=== PATIENT | male | born 1990 | race Caucasian/White ===

== ENCOUNTER 2020-10-04 08:38 | Emergency (ER) | payer SELFPAY ==
[2020-10-04 08:44] VITALS: BP 124/82; PULSE 60; RESP 15; TEMP 36.3; O2SAT 96; BMI 28.2
[2020-10-04] MEDS: TET,DIPH,PERTUSS(ACELL),VAC/PF 0.5 ML SYRINGE IM (11:13)
--- NOTE | 2020-10-04 11:21 | ED_ITS ---
HPI - Wound/Laceration General Chief Complaint: Wound/Laceration Stated Complaint: Cut right hand badly Time Seen by Provider: 10/04/20 08:45 Source: patient Mode of arrival: Ambulatory Limitations: no limitations History of Present Illness HPI narrative: 29-year-old male daily smoker presents with a laceration to his right lateral hand suffered this morning when he accidentally broke a glass. He denies any numbness or tingling. His tetanus will need to be updated. He does have a moderate amount of bleeding which is controlled with pressure. Related Data Allergies Allergy/AdvReac Type Severity Reaction Status Date / Time No Known Drug Allergies Allergy Verified 10/04/20 08:46 Review of Systems Review of Systems Narrative: GENERAL: Denies chills, fatigue, malaise, fever, sweats. HEENT: Denies sinus pain, ear pain, sore throat, difficulty swallowing, dizziness. RESPIRATORY: Denies dyspnea, cough, wheezing, hemoptysis, sputum. CARDIOVASCULAR: Denies chest pain, palpitations, orthopnea, edema, GASTROINTESTINAL: Denies nausea, vomiting, abdominal pain, diarrhea, constipation, melena. : Denies dysuria, frequency, incontinence, hematuria, urinary retention. MUSCULOSKELETAL: denies weakness, joint pain, or bony pain SKIN: See HPI NEUROLOGIC: Denies weakness, headache, numbness, change in speech, confusion, seizures, incoordination. PSYCHIATRIC: No concerning psychosocial issues. 12 point review of systems is negative except for those stated above Patient History Social History Smoking Status: Unknown if ever smoked Smoking Status: Unknown if ever smoked alcohol intake frequency: holidays/special occasions only Substance Use Type: marijuana Exam Narrative Exam Narrative: GEN: AOx3 and in mild distress EYES: Pupils are equal, round, and reactive to light and accommodation. Extraoccular muscles are intact bilaterally. There is no subconjunctival hemorrhage or exudate. CHEST: Lungs are clear to auscultation bilaterally and free of wheezes, rales, or rhonchi. Heart rate is regular rhythm, there are no murmurs, clicks, rubs, or gallops. There is no chest wall tenderness. ABD: Abdomen is soft and nontender. There is no guarding or rebound. Bowel sounds are normal in all 4 quadrants. There is no mass or organomegaly. EXT: Full but painful range of motion of the fingers of the right hand, 3 cm l aceration overlying the medial aspect of the hand adjacent to the 5th metacarpal. No active bleeding, clean, no obvious foreign body, no pulsatile bleeding or evidence of ligamentous injury. No sensory deficit SKIN: Warm, pink, and dry. No erythema or rash Initial Vital Signs Initial Vital Signs: Vital Signs Temperature 97.3 F L 10/04/20 08:44 Pulse Rate 60 10/04/20 08:44 Respiratory Rate 15 10/04/20 08:44 Blood Pressure 124/82 10/04/20 08:44 Pulse Oximetry 96 10/04/20 08:44 Procedures Laceration Repair Laceration 1: Site: hand Side (If applicable): right Size (cm): 3 Description: flap Depth: simple, single layer Local Anesthetic: lidocaine 1% and with bicarb Amount of anesthesia used (mL): 3 Pre-repair: wound explored and irrigated extensively Skin layer closed with: nylon Size (cm): 4-0 Number of sutures: 5 Technique: simple, interrupted Course Orders Ordered: Discontinued Medications Bacitracin (Bacitracin Oint 0.9 Gm Pckt) 1 applic TOP NOW ONE Stop: 10/04/20 12:01 Last Admin: 10/04/20 12:06 Dose: 1 applic Documented by: DENYS Diphtheria/Tetanus/Acell Pertussis (Tet,Diph,Pertuss(Acell),Vac/Pf 0.5 Ml Syringe) 0.5 ml IM .ONCE ONE Stop: 10/04/20 11:08 Last Admin: 10/04/20 11:13 Dose: 0.5 ml Documented by: RODOLFO Lidocaine/Sodium Bicarbonate (Lido 1%/Sod Bicarb 8.4% (10ml) 10 Ml Syringe) 10 ml INJ NOW ONE Stop: 10/04/20 11:26 Last Admin: 10/04/20 12:06 Dose: 10 ml Documented by: DENYS Vital Signs Vital signs: Vital Signs - 8 hr 10/04/20 08:44 Temperature 97.3 F L Pulse Rate 60 Respiratory Rate 15 Blood Pressure 124/82 Pulse Oximetry 96 Discharge Plan Departure Patient Disposition: Home Clinical Impression: Laceration Instructions: DI for Laceration Repair Activity Restrictions/Additional Instructions: Please keep the wound clean and dry to the best of your ability. Please monitor for signs of infection such as redness to the skin or increasing pain. Have the sutures removed by your doctor in about 10 days. If you are unable to get into your doctor, we would be happy to remove the sutures in that same timeframe. Stand Alone Forms: Work Release Note
[2020-10-04] MEDS: LIDO 1%/SOD BICARB 8.4% (10ML) 10 ML SYRINGE INJ (12:06)
[2020-10-04] MEDS: BACITRACIN OINT 0.9 GM PCKT 1 APPLIC TOP (12:06)
== END 2020-10-04 12:14 | disposition home or self-care (01) ==
PROVIDERS: Emergency Provider Emergency Medicine
DX: S61.411A Laceration without foreign body of right hand, initial encounter (principal); W25.XXXA Contact with sharp glass, initial encounter; Z23 Encounter for immunization
CPT/HCPCS: 12002; 90471; 99283; 90715

== ENCOUNTER → 2022-01-28 08:20 | Outpatient (CLI) | payer OTHER, SELFPAY ==
[2022-01-28 09:10] LABS: Influenza A - CEPHEID Flu A NEGATIVE (NEGATIVE); Influenza B - CEPHEID Flu B NEGATIVE (NEGATIVE); Respiratory Syncytial Virus Negative (Negative)
[2022-01-28 09:12] LABS: COVID-19 CEPHEID 4-PLEX PCR Negative (Negative)
== END ==
PROVIDERS: Visit Provider Physician Assistant Medical
DX: R05.9 Cough, unspecified (principal); J02.9 Acute pharyngitis, unspecified
CPT/HCPCS: 0241U; 87070